=== PATIENT | male | born 1970 | race Caucasian/White ===

== ENCOUNTER → 2017-02-11 | Outpatient (CLI) | payer OTHER ==
[~2017-02-11] VITALS: Ht 185.4 cm; Wt 117.0 kg
[~2017-02-11] MED LIST: CHLORHEXIDINE GLUCONATE 2 % 1 PACK (2 CLOTHS) TOPICAL PRN; INSULIN HUMAN REGULAR 1,000 UNITS/10 ML VIAL SQ PRN; LACTATED RINGER'S 1000 ML IV PRN; METOPROLOL TARTRATE 25 MG TAB PO PRN; MULTTAB67 PO; OMEP10CA PO; POVIDONE IODINE 5% (ANTISEPSIS KIT) 4 APPLICATIONS EACH NARE PRN; PROPOFOL 200 MG/20 ML AMP IV ONE; SODIUM CHLORID 0.9% 500 ML IV PRN
[2017-02-11 09:48] VITALS: BP 138/85; PULSE 63; RESP 18; TEMP 97.4; O2SAT 97
--- NOTE | 2017-02-11 11:54 | GIPROC ---
[facility] [address] [facility]. [facility], [address] EGD PROCEDURE REPORT EXAM DATE: 02/11/2017 PATIENT NAME: Дмитрий Howard MR#: [id number] BIRTHDATE: 1970 STATUS: outpatient ATTENDING: Shayy Garcia MD VISIT ID: [id number] CHIEF ENGINEER'S HELPER: Laurel Christensen and Bo Hansen ORDER #: [id number] INDICATIONS: The patient is a 46 yr old male here for an EGD due to history of GERD. PROCEDURE PERFORMED: EGD w/ biopsy MEDICATIONS: Per Anesthesia and None. ASA CLASS: Class II PHYSICAL EXAM: normal CONSENT: The patient understands the risks and benefits of the procedure and understands that these risks include, but are not limited to: sedation, allergic reaction, infection, perforation and/or bleeding. Alternative means of evaluation and treatment include, among others: physical exam, x-rays, and/or surgical intervention. The patient elects to proceed with this endoscopic procedure. DESCRIPTION OF PROCEDURE: for proper function. Hand hygiene and appropriate measures for infection prevention was taken. After the risks, benefits and alternatives of the procedure were thoroughly explained, Informed consent was verified, confirmed and timeout was successfully executed by the treatment team. The EC-3490Li (Pedi C) endoscope was introduced through the mouth and advanced to the second portion of the duodenum. The instrument was slowly withdrawn as the mucosa was fully examined. ESOPHAGUS: The mucosa of the esophagus appeared normal. Multiple biopsies were performed using cold forceps. Sample obtained for evaluation of eosinophilic esophagitis. STOMACH: There was mild gastritis in the gastric body. Multiple biopsies were performed using cold forceps. Sample obtained for helicobacter pylori testing. The stomach otherwise appeared normal. DUODENUM: The duodenal mucosa appeared normal in the bulb and second portion of the duodenum. Retroflexed views revealed no abnormalities The gastroscope was then slowly withdrawn and removed. COMPLICATIONS: There were no complications. IMPRESSIONS: 1. The esophagus appeared normal; multiple biopsies were performed 2. There was mild gastritis in the gastric body; multiple biopsies were performed 3. The stomach otherwise appeared normal 4. Normal duodenal mucosa in the bulb and second portion of the duodenum 5. Retroflexed views revealed no abnormalities RECOMMENDATIONS: 1. Await biopsy results. Biopsy results will not be ready for 7-10 days. If you don't hear from us in two weeks, call our office for biopsy results. 2. Anti-reflux regimen 3. Continue PPI PATIENT CONDITION: stable DISPOSITION: Home REPEAT EXAM: NONE Shayy Garcia MD eSigned: Shayy Garcia MD 02/11/2017 11:54 AM cc: PATIENT NAME: Дмитрий Howard MR#: [id number]
--- NOTE | 2017-02-11 12:08 | GIPROC ---
[facility] [address] [facility]. [facility], [address] COLONOSCOPY PROCEDURE REPORT EXAM DATE: 02/11/2017 PATIENT NAME: Дмитрий Howard MR #: [id number] BIRTHDATE: 1970 ENDOSCOPIST: Shayy Garcia MD ORDER #: [id number] VIBRATION TECHNICIAN: Bo Hansen and Laurel Christensen STATUS: outpatient INDICATIONS: The patient is a 46 yr old male here for a colonoscopy due to rectal bleeding PROCEDURE PERFORMED: Colonoscopy with biopsy MEDICATIONS: Per Anesthesia and None. PREP QUALITY: good PREP TYPE:SuPrep ESTIMATED BLOOD LOSS: None CONSENT: The patient understands the risks and benefits of the procedure and understands that these risks include, but are not limited to: sedation, allergic reaction, infection, perforation and/or bleeding. Alternative means of evaluation and treatment include, among others: physical exam, x-rays, and/or surgical intervention. The patient elects to proceed with this endoscopic procedure. medical equipment was checked for proper function. Hand hygiene and appropriate measures for infection prevention was taken. After the risks, benefits and alternatives of the procedure were thoroughly explained, Informed consent was verified, confirmed and timeout was successfully executed by the treatment team. A digital exam was performed and revealed no abnormalities of the rectum The Pentax EC-3490Li endoscope was introduced through the anus and advanced to the cecum, which was identified by both the appendix and ileocecal valve. The instrument was then slowly withdrawn as the colon was fully examined. COLON FINDINGS: A smooth sessile polyp was found in the transverse colon. A biopsy was performed using cold forceps. The colon mucosa was otherwise normal. Retroflexed views revealed medium internal hemorrhoids The scope was then completely withdrawn from the patient and the procedure terminated. PROCEDURE WITHDRAWAL TIME:7minutes ADVERSE EVENTS: There were no complications. IMPRESSIONS: 1. A sessile polyp was found in the transverse colon; biopsy was performed using cold forceps 2. The colon mucosa was otherwise normal 3. Retroflexed views revealed medium internal hemorrhoids 4. Was performed 5. Revealed no abnormalities of the rectum RECOMMENDATIONS: 1. Await biopsy results. Biopsy results will not be ready for 7-10 days. If you don't hear from us in two weeks, call our office for results. 2. Benefiber 2 tsp daily 3. Continue surveillance 4. High fiber diet RECALL: Return 10 years Colonoscopy if polyp hyperplastic Shayy Garcia MD eSigned: Shayy Garcia MD 02/11/2017 12:08 PM cc: PATIENT NAME: Дмитрий Howard MR#: [id number]
[2017-02-11 12:15] VITALS: BP 127/80; PULSE 62; RESP 18; TEMP 97.7; O2SAT 96
== END ==
LOC: HSDC 08:57
PROVIDERS: ATTEND Internal Medicine Gastroenterology
DX: K21.9 Gastro-esophageal reflux disease without esophagitis (principal); K29.70 Gastritis, unspecified, without bleeding; K62.5 Hemorrhage of anus and rectum; D12.3 Benign neoplasm of transverse colon; K64.8 Other hemorrhoids
CPT/HCPCS: 00740; 00810; 43239; 45380; 88305; 88312; J7120